=== PATIENT | female | born 1965 | race Caucasian/White ===

== ENCOUNTER 2016-08-12 15:40 | Emergency (ER) | payer OTHER | END 2016-08-12 16:50 | disposition short-term general hospital (02) | LOC: ER 15:40 | DX: N39.0 Urinary tract infection, site not specified (principal); I10 Essential (primary) hypertension; E78.5 Hyperlipidemia, unspecified; Z98.51 Tubal ligation status; Z88.0 Allergy status to penicillin; Z88.2 Allergy status to sulfonamides; Z91.048 Other nonmedicinal substance allergy status ==

== ENCOUNTER 2016-08-25 03:25 | Emergency (ER) | payer OTHER ==
[~2016-08-25] VITALS: Ht 167.6 cm; Wt 116.6 kg
[2016-08-25] MEDS ORDERED: COZAAR50 MG PO (04:27)
[2016-08-25] MEDS ORDERED: TENORMIN50 MG PO (04:27)
[2016-08-25] MEDS ORDERED: PHENERGAN25 M1 PO (04:27)
[2016-08-25] MEDS ORDERED: LIPITOR20 MG PO (04:28)
== END 2016-08-25 06:10 | disposition short-term general hospital (02) ==
LOC: ER 03:25
DX: K21.9 Gastro-esophageal reflux disease without esophagitis (principal); R07.9 Chest pain, unspecified; F41.9 Anxiety disorder, unspecified; I10 Essential (primary) hypertension; E78.5 Hyperlipidemia, unspecified; Z79.899 Other long term (current) drug therapy; Z88.0 Allergy status to penicillin; Z88.2 Allergy status to sulfonamides; Z91.048 Other nonmedicinal substance allergy status